=== PATIENT | male | born 1975 | race Caucasian/White ===

== ENCOUNTER 2019-05-29 08:51 | Outpatient (CLI) | payer OTHER, SELFPAY ==
--- NOTE | 2019-05-29 09:02 | EST_ITS ---
Patient Info Name: Tadeo Gomez Age: 43 years : 1975 Gender: Male Ht: 68 in Wt: 152 lbs BSA: 1.82 m2 Exam Date: 05/29/2019 10:05 AM [facility] Patient Status: Outpatient Admit Date: 05/29/2019 Staff Ordering Physician: Evelia Atwood Inside Sales Associate: Barbie Brantley RDCS Attending Provider: AFUA KAN DO Referring Physician: Rai GONZALES; Exercise Technologist: Sean Riddle RDCS Exercise Physician: Jhonathan Kan DO Exam Type: CA stress echo Study Info Indications R07.89 - Other chest pain Treadmill exercise stress echocardiogram is performed. Summary 1. 1. Negative Toi exercise stress test for ischemic ST changes by ECG criteria. 2. 2. Good functional capacity, achieving 14 METs of workload. 3. 3. Appropriate HR response to exercise. 4. 4. Appropriate HR recovery at 1 minute post exercise. 5. 5. Negative stress echocardiogram for ischemia by wall motion analysis. 6. 6. Patient informed of the above results. Stress Echo Findings Left Ventricle Appropriate increase in LV endocardial thickening with systole. Appropriate augmentation of contractility with systole. No wall motion abnormality. Left Ventricle Normal LV systolic function, no wall motion abnormality. Protocol: Toi Stress ECG Details Stage: REST Duration (min): 0 min : 55 sec Speed (mph): 0.0 Grade (%): 0 HR (bpm): 60 SBP (mmHg): 142 DBP (mmHg): 90 METS: --- Stage: REST Duration (min): 12 min : 7 sec Speed (mph): 0.0 Grade (%): 0 HR (bpm): 74 SBP (mmHg): 142 DBP (mmHg): 90 METS: --- Stage: STAGE 1 Duration (min): 1 min : 0 sec Speed (mph): 1.7 Grade (%): 10 HR (bpm): 86 SBP (mmHg): 142 DBP (mmHg): 90 METS: --- Stage: STAGE 1 Duration (min): 2 min : 0 sec Speed (mph): 1.7 Grade (%): 10 HR (bpm): 82 SBP (mmHg): 142 DBP (mmHg): 90 METS: --- Stage: STAGE 1 Duration (min): 3 min : 0 sec Speed (mph): 1.7 Grade (%): 10 HR (bpm): 86 SBP (mmHg): 172 DBP (mmHg): 88 METS: --- Stage: STAGE 2 Duration (min): 1 min : 0 sec Speed (mph): 2.5 Grade (%): 12 HR (bpm): 94 SBP (mmHg): 172 DBP (mmHg): 88 METS: --- Stage: STAGE 2 Duration (min): 2 min : 0 sec Speed (mph): 2.5 Grade (%): 12 HR (bpm): 95 SBP (mmHg): 162 DBP (mmHg): 85 METS: --- Stage: STAGE 2 Duration (min): 3 min : 0 sec Speed (mph): 2.5 Grade (%): 12 HR (bpm): 102 SBP (mmHg): 162 DBP (mmHg): 85 METS: --- Stage: STAGE 3 Duration (min): 1 min : 0 sec Speed (mph): 3.4 Grade (%): 14 HR (bpm): 107 SBP (mmHg): 169 DBP (mmHg): 93 METS: --- Stage: STAGE 3 Duration (min): 2 min : 0 sec Speed (mph): 3.4 Grade (%): 14 HR (bpm): 110 SBP (mmHg): 169 DBP (mmHg): 93 METS: --- Stage: STAGE 3 Duration (min): 3 min : 0 sec Speed (mph): 3.4 Grade (%): 14 HR (bpm):
== END 2019-05-29 08:52 | disposition home or self-care (01) ==
PROVIDERS: PCP Internal Medicine; Visit Provider Nurse Practitioner
DX: R07.9 Chest pain, unspecified (principal)
CPT/HCPCS: 93351

== ENCOUNTER 2024-12-01 14:00 | Outpatient (CLI) | payer OTHER, SELFPAY ==
--- NOTE | ~2024-12-01 | US_ITS ---
EXAMINATION: US scrotum doppler DATE: 12/01/2024 14:37 INDICATION: Left testicular pain TECHNIQUE: Testicular sonogram utilizing grayscale and Doppler COMPARISON: None. FINDINGS: The right testis measures 3.9 x 3.6 x 2.3 cm. The left testis measures 4.4 x 3.2 x 2.3 cm. Symmetric normal grayscale appearance to both testes. There is normal vascular flow to both testes. The right epididymis is normal with normal vascular flow. The left epididymis is normal with normal vascular flow. Small bilateral hydroceles. No varicocele. IMPRESSION: 1. Small bilateral hydroceles. Otherwise normal scrotal ultrasound. Reviewed, dictated and finalized at location A.
== END 2024-12-01 14:01 | disposition home or self-care (01) ==
LOC: GOSHIMG 14:00
PROVIDERS: PCP Internal Medicine; Visit Provider Internal Medicine
DX: N50.812 Left testicular pain (principal); N43.3 Hydrocele, unspecified
CPT/HCPCS: 76870; 93976